=== PATIENT | female | born 1960 | race Caucasian/White ===

== ENCOUNTER 2025-02-22 21:00 | Emergency (ER) | payer OTHER, SELFPAY ==
[2025-02-22 21:03] VITALS: BP 138/88
[2025-02-22 21:06] VITALS: BP 138/88; BMI 23.6
[2025-02-22 21:23] LABS: Hematocrit 45.6 % (37.0-47.0); Hemoglobin 15.9 g/dL (12.0-16.0); Mean Corp Hgb Conc. 34.9 g/dL (33.0-37.0); Mean Corpuscular Hgb 34.1 pg (27.0-31.0); Mean Corpuscular Volume 97.9 fL (81.0-99.0); Mean Platelet Volume 8.7 fL (7.4-10.4); Platelet Count 257 10^3/uL (130-400); Red Blood Cell Count 4.66 10^6/uL (4.20-5.40); Red Cell Dist. Width 12.8 % (11.5-14.5); White Blood Cell Count 25.1 10^3/uL (4.8-10.8)
[2025-02-22 21:32] LABS: ALT (SGPT) 16 U/L (0-35); AST (SGOT) 21 U/L (14-36); Albumin 4.8 g/dl (3.5-5.0); Alkaline Phosphatase 95 U/L (38-126); Blood Urea Nitrogen 13 mg/dl (7-17); Calcium 9.9 mg/dl (8.4-10.2); Carbon Dioxide 20 mmol/L (22-30); Chloride 111 mmol/L (98-107); Estimated Creatinine Clearance 57 ml/min; Glucose 117 mg/dl (70-99); Lipase 98 U/L (23-300); Potassium 4.4 mmol/L (3.5-5.1); Sodium 141 mmol/L (135-145); Total Bilirubin 0.6 mg/dl (0.2-1.3); Total Protein 7.9 g/dl (6.3-8.2); eGFR > 60.00
[2025-02-22 21:44] LABS: % Basophils 0.6 % (0-2); % Eosinophils 0.9 % (0-6); % Immature Granulocytes 0.6 % (0-0.5); % Lymphocytes 3.6 % (20.5-51.1); % Monocytes 5.6 % (1.7-9.3); % Neutrophils 88.7 % (42.2-75.2); Absolute Basophils 0.2 10^3/uL (0-0.2); Absolute Eosinophils 0.2 10^3/uL (0-0.7); Absolute Immature Granulocytes 0.1 10^3/uL (0-0.05); Absolute Lymphocytes 0.9 10^3/uL (1.2-3.4); Absolute Monocytes 1.4 10^3/uL (0.1-0.6); Absolute Neutrophils 22.2 10^3/uL (1.4-6.5); Nucleated Red Blood Cells % 0 %
[2025-02-22 22:00] VITALS: BP 98/65
--- NOTE | 2025-02-22 22:07 | ED.GENMED ---
History of Present Illness
<Alba Lanza PA-C - Last Filed: 02/22/25 22:07>
General
Chief Complaint: Abdominal Symptoms
Time Seen by Provider: 02/22/25 22:08
<Sam Tillman DO - Last Filed: 02/23/25 01:15>
General
Source: patient
Exam Limitations: none
Nursing documentation reviewed up to this point in time: agreed with
History of Present Illness
History of Present Illness:
Note:
CHIEF COMPLAINT(S)
Vomiting, diarrhea, abdominal pain, and chills.
HISTORY OF PRESENT ILLNESS
The patient is a 64-year-old female with a known history of Crohns disease who presents with vomiting, diarrhea, and abdominal pain. Symptoms began approximately half an hour after eating chicken purchased from the store. The vomiting and diarrhea
persisted for about 10 hours. The patient described the abdominal pain as feeling like 'something was twisting inside,' leading to cramping in her intestines. This experience is reminiscent of a similar episode she had eight months ago. She reported
developing dehydration due to these symptoms and experienced chills after initial episodes of sweating, though she noted being afebrile earlier today. She denies any chest pain or shortness of breath. The patient reports no blood in her vomitus or
stools. She experienced similar symptoms several years ago following food poisoning at work.
The patient has no appendix and has undergone a cholecystectomy. She self-identifies as having Crohns disease, though notes this incident felt different from previous Crohns flares.
CHRONIC MEDICAL CONDITIONS SIGNIFICANTLY AFFECTING CARE
Crohns disease.
SOCIAL DETERMINANTS AFFECTING HEALTH
The patient mentions smoking half a pack of cigarettes per day and consuming alcohol occasionally.
MEDICATIONS
Celecoxib, used for arthritis in the back.
REVIEW OF SYSTEMS
- Gastrointestinal: Vomiting, diarrhea, abdominal pain described as twisting.
- Constitutional: Sweating followed by chills, no fever.
- Respiratory: Denies shortness of breath.
- Cardiovascular: Denies chest pain.
- Neurological: No headaches or dizziness, though patient notes a history of fainting.
PHYSICAL EXAM
- Nursing notes reviewed and vital signs reviewed.
- Abdominal examination revealed no significant tenderness upon palpation, with patient showing no protective guarding or jumping upon examination.
PLAN
- Order a computed tomography scan (CAT scan) to rule out bowel twisting (volvulus) given concerns over the elevated white blood cell count.
- Administer intravenous fluids to address dehydration.
- Monitor white blood cell count as elevated to 25,000 which is higher than normal.
- Evaluate causes for elevated white blood cell count; could be related to the severe vomiting or potentially another underlying infection or disorder.
DIFFERENTIAL DIAGNOSIS
The Differential Diagnosis includes, in no particular order and is not limited to:
1. Infectious gastroenteritis
2. Crohns disease exacerbation
3. Volvulus
4. Food poisoning
5. Small bowel obstruction
6. Inflammatory bowel disease flare
7. Pseudo-obstruction
8. Viral gastroenteritis
9. Bacterial gastroenteritis
10. Appendicitis
CARE-UPDATE
02/23/25 - :06
The lab analysis indicates the presence of leukocyte esterase and a small amount of bacteria. The patient is not experiencing urinary resistance.
CARE-UPDATE
02/23/25 - 01:11
Patients condition shows signs of enteritis, likely viral, aligned with a stomach bug. Mild signs suggesting a Crohns flare were noted, but not severe or definitive. Urinalysis showed minor bacterial presence, but not indicative of a UTI or
requiring treatment. Patient was dehydrated on arrival and received 1,500 cc of fluids; currently tolerating oral intake, including water and Gatorade, without issues. No significant findings were returned from blood work. Patient reports an overall
improvement and feels ready for discharge. There is reassurance that current symptoms differ from past Crohns flare-ups. Plan to complete fluid administration and proceed with discharge.
Disposition:
DIAGNOSIS
- Gastroenteritis (ICD-10: K52.9)
- Crohns disease exacerbation, mild (ICD-10: K50.90)
SUMMARY OF ENCOUNTER
The patient, a 64-year-old female with a history of Crohns disease, presented to the emergency department experiencing vomiting, diarrhea, and abdominal pain. A computed tomography (CT) scan was conducted, which showed fluid throughout the colon
consistent with her history of loose stools, mild thickening of the colon, and areas of mucosal hyperenhancement. These findings are indicative of mild active inflammatory disease or colitis but showed no signs of obstruction, perforation, or
abscess. The patient received 1,500 cc of intravenous fluids to address dehydration, after which she reported feeling better and able to tolerate oral intake, including liquids such as Gatorade.
DISPOSITION
Discharge
ASSESSMENT
The symptoms and CT scan findings suggest a mild Crohns disease exacerbation with possible gastroenteritis.
PLAN
The patient will be discharged with instructions to maintain hydration and follow up with her primary care physician for ongoing management of her Crohns disease.
INDEPENDENT INTERPRETATION OF TESTS
- My independent interpretation of the CT scan indicates fluid presence throughout the colon, mild thickening of the colon, and areas of mucosal hyperenhancement, suggestive of mild active inflammatory disease or colitis, with no obstruction,
perforation, or abscess noted.
MEDICAL DECISION MAKING
Number and Complexity of Problems Addressed:
The patient presented with symptoms requiring evaluation for both acute gastroenteritis and a potential exacerbation of Crohns disease. These conditions were managed with hydration therapy and diagnostic imaging.
Data:
The signs and symptoms were supported by a CT scan to evaluate and rule out significant gastrointestinal complications, such as obstruction or perforation.
Risk:
Intravenous fluid administration was performed to address dehydration, and careful consideration was given to differentiating between infectious gastroenteritis and a Crohns disease flare-up, as well as the risk of underlying inflammatory disease
impacting the patients care and discharge decision.
Past History
<Alba Lanza PA-C - Last Filed: 02/22/25 22:07>
Past History
ED Past Medical History: Other
ED Past Surgical History: Appendectomy, Cholecystectomy and Gynecological
Phy Exam
<Sam Tillman DO - Last Filed: 02/23/25 01:15>
General Physical Exam
General Presentation: well appearing and no apparent distress
General Skin: warm and dry
General Habitus: normal
General Mental: alert
General Hydration: appears well hydrated
ENT Exam
ENT Exam: EOMI, pharynx normal, neck supple and normocephalic
Eye Exam
Eye Exam: PERRL, cornea clear and conjunctiva normal
Cardiovascular Exam
Cardiovascular Exam: regular rate/rhythm, no edema, no murmur and normal peripheral pulses
Pulmonary Exam
Pulmonary Exam: lungs clear, no respiratory distress, no rales, no crackles, no rhonchi, no stridor, no wheezing and no cough
Gastrointestinal Exam
Gastrointestinal Exam: normal bowel sounds, soft, no organomegaly, no pulsatile mass and non distended
Palpation: generalized: Minimal tenderness
Neurological Exam
Neurological Exam: alert, oriented x3, no motor deficits and speech normal
Musculoskeletal Exam
Musculoskeletal Exam: full ROM and no edema
Skin Exam
Skin Exam: normal color, warm/dry, no rash and no petechia
Psychiatric Exam
Psychiatric Exam: normal mood/affect
Course
<Alba Lanza PA-C - Last Filed: 02/22/25 22:07>
Orders/Labs/Results
Orders:
Orders
02/22/25 21:10
Electrocardiogram (*1) Urgent
Reason for Study: Fatigue / Weakness
02/22/25 21:11
EKG- Treatment ONCE
02/22/25 21:12
Complete Blood Count/With Diff Urgent
Comprehensive Metabolic Panel Urgent
Lipase Urgent
02/22/25 22:28
CT Abd/Pel (IV only)-DH only Urgent
Comment:
Reason For Exam: diffuse abd pain
Urinalysis Reflex To Culture Urgent
Date Specimen was Collected: 02/23/25
Time Specimen was Collected: 00:00
02/22/25 22:39
Lactic Acid Q4H
Comment: CANCEL 2nd LACTIC ACID IF 1st LACTIC ACID IS LESS THAN 2
02/22/25 23:33
0.9% Sodium Chloride 1000 ml [Nss] 1,000 ml IV BOLUS
02/23/25 00:03
Urine Microscopic Reflex Cult Urgent
Urine Culture Urgent
DIEGO Source: U
Specimen Description:
Date Specimen was Collected: 02/23/25
Time Specimen was Collected: 00:00
02/23/25 01:06
Complete Blood Count/With Diff Urgent
Abnormal Lab Results
02/22/25 02/22/25 02/23/25
21:12 22:39 00:03
WBC 25.1 H 10^3/uL
(4.8-10.8)
MCH 34.1 H pg
(27.0-31.0)
Abs Immat Gran (auto) 0.1 H 10^3/uL
(0-0.05)
Absolute Neuts (auto) 22.2 H 10^3/uL
(1.4-6.5)
Absolute Lymphs (auto) 0.9 L 10^3/uL
(1.2-3.4)
Absolute Monos (auto) 1.4 H 10^3/uL
(0.1-0.6)
Immature Gran % 0.6 H %
(0-0.5)
Neutrophils % 88.7 H %
(42.2-75.2)
Lymphocytes % 3.6 L %
(20.5-51.1)
Chloride 111 H mmol/L
(98-107)
Carbon Dioxide 20 L mmol/L
(22-30)
Glucose 117 H mg/dl
(70-99)
Lactic Acid 0.6 L mmol/L
(0.7-2.0)
Urine Ketones 3+ A
(Negative)
Leukocyte Esterase Rfl 1+ A
(Negative)
Urine Bacteria (Reflex) Few A
(Negative)
Urine Albumin (Reflex) 1+ A
(Neg - Trace)
02/22/25 21:12
Vital Signs
Initial and Last Documented VS:
Initial Vital Signs
Pulse Resp BP Pulse Ox
92 22 138/88 95
02/22/25 21:03 02/22/25 21:03 02/22/25 21:03 02/22/25 21:03
Last Documented Vital Signs
Temp Pulse Resp BP Pulse Ox
98.0 F 80 14 126/81 97
02/22/25 21:06 02/23/25 00:45 02/23/25 00:45 02/23/25 00:03 02/23/25 00:45
<Sam Tillman, DO - Last Filed: 02/23/25 01:15>
Orders/Labs/Results
Orders:
Orders
02/22/25 21:10
Electrocardiogram (*1) Urgent
Reason for Study: Fatigue / Weakness
02/22/25 21:11
EKG- Treatment ONCE
02/22/25 21:12
Complete Blood Count/With Diff Urgent
Comprehensive Metabolic Panel Urgent
Lipase Urgent
02/22/25 22:28
CT Abd/Pel (IV only)-DH only Urgent
Comment:
Reason For Exam: diffuse abd pain
Urinalysis Reflex To Culture Urgent
Date Specimen was Collected: 02/23/25
Time Specimen was Collected: 00:00
02/22/25 22:39
Lactic Acid Q4H
Comment: CANCEL 2nd LACTIC ACID IF 1st LACTIC ACID IS LESS THAN 2
02/22/25 23:33
0.9% Sodium Chloride 1000 ml [Nss] 1,000 ml IV BOLUS
02/23/25 00:03
Urine Microscopic Reflex Cult Urgent
Urine Culture Urgent
DIEGO Source: U
Specimen Description:
Date Specimen was Collected: 02/23/25
Time Specimen was Collected: 00:00
02/23/25 01:06
Complete Blood Count/With Diff Urgent
Abnormal Lab Results
02/22/25 02/22/25 02/23/25
21:12 22:39 00:03
WBC 25.1 H 10^3/uL
(4.8-10.8)
MCH 34.1 H pg
(27.0-31.0)
Abs Immat Gran (auto) 0.1 H 10^3/uL
(0-0.05)
Absolute Neuts (auto) 22.2 H 10^3/uL
(1.4-6.5)
Absolute Lymphs (auto) 0.9 L 10^3/uL
(1.2-3.4)
Absolute Monos (auto) 1.4 H 10^3/uL
(0.1-0.6)
Immature Gran % 0.6 H %
(0-0.5)
Neutrophils % 88.7 H %
(42.2-75.2)
Lymphocytes % 3.6 L %
(20.5-51.1)
Chloride 111 H mmol/L
(98-107)
Carbon Dioxide 20 L mmol/L
(22-30)
Glucose 117 H mg/dl
(70-99)
Lactic Acid 0.6 L mmol/L
(0.7-2.0)
Urine Ketones 3+ A
(Negative)
Leukocyte Esterase Rfl 1+ A
(Negative)
Urine Bacteria (Reflex) Few A
(Negative)
Urine Albumin (Reflex) 1+ A
(Neg - Trace)
02/22/25 21:12
Vital Signs
Initial and Last Documented VS:
Initial Vital Signs
Pulse Resp BP Pulse Ox
92 22 138/88 95
02/22/25 21:03 02/22/25 21:03 02/22/25 21:03 02/22/25 21:03
Last Documented Vital Signs
Temp Pulse Resp BP Pulse Ox
98.0 F 80 14 126/81 97
02/22/25 21:06 02/23/25 00:45 02/23/25 00:45 02/23/25 00:03 02/23/25 00:45
<Sam Tillman DO - Last Filed: 02/23/25 01:15>
*Radiology
Radiology exam reviewed: radiology read reviewed
*Pulse Oximetry
Patient hypoxic: no (97% on room air)
*Critical Care Note
Total Time (30-74mins, 75-104mins- exclusive of procedures): Not Applicable
<Sam Tillman DO - Last Filed: 02/23/25 01:15>
Update Note
Update Note:
NAME: KATHY CABA
DATE OF EXAM: 02/22/2025
Patient No: [id number]
Physician: JAMILA^DIDIER
Date of : 1960
Past Medical History (entered by Technologist):
Reason For Exam (entered by Technologist):
Other Notes (entered by Technologist): Pt arrives from home via EMS with complaints of vomiting and diarrhea for the past 1.5 hours. Pt was hypotensive for EMS. Given 4 mg of zofran and NSS started.
No prior
Additional Information (per [facility] Radiologist): Patient with vomiting and diarrhea. History of Crohn's
CT abdomen and pelvis with contrast
Comparison: None
IMPRESSION:
Fluid throughout the colon in keeping with history of loose stools
Mild thickening of the colon with areas of mucosal hyperenhancement, which may signify mild active inflammatory disease(mild colitis)
Some regions of thickening demonstrate submucosal fatty deposition; and there is associated loss of postural folds (more typical of chronic sequela of inflammation
No obstruction, perforation or abscess
Incidental findings: Mild bibasilar dependent atelectasis
Left renal cyst
Subcentimeter low-attenuation focus in the right kidney that is too small to characterize
Cholecystectomy
Atherosclerotic calcifications abdominal aorta and iliac vessels
Degenerative changes in the spine, pelvis, and hips
Findings discussed with Dr. Tillman at 12:23 AM ET
ED Attending Note
<Alba Lanza PA-C - Last Filed: 02/22/25 22:07>
-
Portions of this chart may have been created with voice recognition software.� Occasional wrong word or��sound alike� substitutions may have occurred due to the inherent limitations of voice recognition software.
Discharge Plan
Departure
Patient Disposition: Home (Routine Discharge)
Date of Disposition: 02/23/25
Time of Disposition: 01:12
Patient with high blood pressure during this ER visit?: Yes
Condition: Fair
Discharge Problem:
Gastroenteritis, Crohn's colitis
Instructions: Clear Liquid Diet, [place] Diet, Abdominal Pain, BLOOD PRESSURE
Prescriptions:
No Action
zolpidem 5 MG tablet
5 mg PO HSPRN PRN (Reason: sleep)
mesalamine [Lialda] 1.2 GM tablet,delayed release (DR/EC)
2.4 gm PO HS
ondansetron 4 MG tablet,disintegrating
4 mg PO TIDPRN PRN (Reason: nausea/vomiting) Qty: 15 0RF
Referrals:
UNKNOWN - PT DOES,NOT KNOW [Family Provider]
Activity Restrictions/Additional Instructions:
Thank You for choosing [facility].
It was a pleasure meeting you and taking part in your care. We hope for your continued healing and wellness.
Please read discharge instructions in their entirety. However, they are for general education and may not describe your exact diagnosis at discharge. Information on your ER visit and medical conditions were discussed with you along with appropriate
follow up information...
If indicated, please take your medications as instructed and indicated on discharge paperwork.
Please schedule a follow up appointment as directed. Call to schedule an appointment
Please return to the emergency department with ANY change in, persisting, or worsening of symptoms. If any of your symptoms do not improve, or persist, or become more severe within 6-12 hours, please return to the emergency department for further
care.
Please return to the emergency department if you develop a headache, neck pain/stiffness, fever greater than 100.4F, chest pain, shortness of breath, persistent nausea, vomiting, slurred speech, difficulty walking, numbness/tingling, weakness, signs
of infection or any other symptoms that are worrisome to you.
If you have any questions or concerns please do not hesitate to call the Hospital at or E-mail me directly at [email or web address]
Interventions
Interventions:
*Risk Screen - Suicide Last Done: 02/22/25 21:06
*General Assessment Last Done: 02/22/25 21:06
*Neglect/Abuse Screening Last Done: 02/22/25 21:06
*ED- Fall Risk Assessment Last Done: 02/22/25 21:06
*ED COVID-19 Vaccine History Last Done: 02/22/25 21:06
VC-[id number]-[id number] Assessment Last Done: 02/22/25 21:20
Discharge Date and Time
Print Language: BURMESE
[2025-02-22 22:37] VITALS: BP 124/82
[2025-02-22 22:56] LABS: Lactic Acid 0.6 mmol/L (0.7-2.0)
[2025-02-22 23:00] VITALS: BP 106/75
[2025-02-22] MEDS: NSS 1000 IV (23:59)
[2025-02-23 00:03] VITALS: BP 126/81
[2025-02-23 00:13] LABS: Urine Albumin 1+ (Neg - Trace); Urine Bilirubin Negative (Negative); Urine Character Clear (Clear); Urine Color Yellow; Urine Glucose Negative (Negative); Urine Ketone 3+ (Negative); Urine Leukocyte 1+ (Negative); Urine Nitrite Negative (Negative); Urine Occult Blood Negative (Negative); Urine Urobilinogen Negative (Neg - 1+)
[2025-02-23 00:33] LABS: Urine Mucus Moderate
[2025-02-23 00:35] LABS: Urine Bacteria Few (Negative); Urine Red Blood Cell None Seen /HPF (0-2)
[2025-02-23 01:00] VITALS: BP 112/78
[2025-02-23 01:39] LABS: % Basophils 0.4 % (0-2); % Eosinophils 0.8 % (0-6); % Immature Granulocytes 0.3 % (0-0.5); % Lymphocytes 6.4 % (20.5-51.1); % Monocytes 3.2 % (1.7-9.3); % Neutrophils 88.9 % (42.2-75.2); Absolute Basophils 0.1 10^3/uL (0-0.2); Absolute Eosinophils 0.1 10^3/uL (0-0.7); Absolute Lymphocytes 0.9 10^3/uL (1.2-3.4); Absolute Monocytes 0.4 10^3/uL (0.1-0.6); Absolute Neutrophils 11.8 10^3/uL (1.4-6.5); Hematocrit 37.7 % (37.0-47.0); Hemoglobin 12.9 g/dL (12.0-16.0); Mean Corp Hgb Conc. 34.2 g/dL (33.0-37.0); Mean Corpuscular Hgb 33.7 pg (27.0-31.0); Mean Corpuscular Volume 98.4 fL (81.0-99.0); Mean Platelet Volume 8.7 fL (7.4-10.4); Nucleated Red Blood Cells % 0 %; Platelet Count 213 10^3/uL (130-400); Red Blood Cell Count 3.83 10^6/uL (4.20-5.40); White Blood Cell Count 13.3 10^3/uL (4.8-10.8)
== END 2025-02-23 01:36 | disposition home or self-care (01) ==
LOC: EMR 21:00
PROVIDERS: Emergency Medicine; EMERGENCY PHYSICIAN Student in an Organized Health Care Education/Training Program
DX: K52.9 Noninfective gastroenteritis and colitis, unspecified (principal); K50.10 Crohn's disease of large intestine without complications; E86.0 Dehydration; F17.210 Nicotine dependence, cigarettes, uncomplicated; Z90.49 Acquired absence of other specified parts of digestive tract
CPT/HCPCS: 99284; 96360; 74177; 80053; 81003; 81015; 83605; 83690; 85025; 87086; 93005; Q9967